=== PATIENT | female | born 1965 | race Caucasian/White ===

== ENCOUNTER → 2016-09-05 | Outpatient (CLI) | payer OTHER ==
[~2016-09-05] MED LIST: /CELE20CA OR; /ESCI20TA OR; /ESOM40CA OR; /QUET25TA OR; ACTOS/METFORMIN OR; ADVAIR INH; AMBI10TA OR; ARTHROTEC PO; BABY81CH OR; BACL10TA2 OR; INSULANT SC; INSULIN LANTUS; INSULIN REG SC; LODINE; MAGN500T2 OR; METH750T OR; MIRAPEX OR; NEUR300C OR; RAMI25CA OR; ROSU10TA; ROSU10TA OR; SOMA250T OR; SULI150T; TRAM50TA2 OR; [UNRECOGNIZED DRUG - REMARK]; januvia PO
--- NOTE | 2016-09-05 14:07 | REPMRS ---
Patient History The patient states she has not had a clinical breast exam in over a year. Patient is postmenopausal. Family history of unknown cancer in father at age 53, endometrial cancer in sister at age 44, and unknown cancer in mother at age 54. Digital Mammo Screening Bilat: September 05, 2016 - Exam #: [id number] Bilateral CC and MLO view(s) were taken. Technologist: Mitra Christianson, Technologist Prior study comparison: May 23, 2014, bilateral digital mammo screening bilat performed at [facility]. FINDINGS: There are scattered fibroglandular densities. There has been no change in the appearance of the mammogram from the prior studies. There is a mild amount of scattered fibroglandular density which is fairly symmetric. There is no interval development of dominant mass, architectural distortion, or clustered microcalcification suggestive of malignancy. ASSESSMENT: BI-RADS/ACR category 1 mammogram. Negative. Recommendation Routine screening mammogram in 1 year (for women over age 40). This mammogram was interpreted with the aid of an FDA-approved computer-aided dectection system. Electronically Signed By: Yuniel Kathleen MD 09/05/16 [id number]
--- NOTE | 2016-09-06 02:16 | REP ---
Clinical: Pain. Malignant neoplasm . Technique: AP, lateral, bilateral oblique views left wrist . Findings: The carpal bones, surrounding osseous structures, soft tissues, and joint spaces are normal for age . There is no evidence for acute fracture or dislocation. No subcutaneous emphysema or radiodense foreign body. Impression: Normal age appropriate wrist series. No acute fracture or dislocation. No obvious osseous or articular abnormality. Signed by Isaiah Soriano MD 09/06/2016 02:07 A
--- NOTE | 2016-09-06 02:42 | REP ---
Clinical: Pain. History of malignancy. Technique: AP, lateral, bilateral oblique and sunrise views of the right and left knee . Findings: The osseous structures and joint spaces are intact and age appropriate. There is no evidence for acute fracture or dislocation. No joint effusion is appreciated. Surrounding soft tissues are unremarkable. No subcutaneous emphysema or radiodense foreign body. Impression: Mild age-related changes. No acute fracture or dislocation. No obvious osseous abnormality. Signed by Isaiah Soriano MD 09/06/2016 02:33 A
== END ==
LOC: M RAD 13:45
PROVIDERS: ATTEND Nurse Practitioner Adult Health
DX: Z12.31 Encounter for screening mammogram for malignant neoplasm of breast (principal); Z78.0 Asymptomatic menopausal state; M25.532 Pain in left wrist; M67.442 Ganglion, left hand; M25.561 Pain in right knee; Z80.49 Family history of malignant neoplasm of other genital organs
CPT/HCPCS: 73110; 73564; G0202

== ENCOUNTER 2017-03-02 13:31 | Emergency (ER) | payer OTHER ==
[~2017-03-02] VITALS: Ht 162.6 cm; Wt 68.4 kg
[2017-03-02 13:32] VITALS: BP 114/71
[2017-03-02] MEDS ORDERED: METF10004 (13:42)
[2017-03-02] MEDS ORDERED: VITA1CAP40 (13:42)
[2017-03-02] MEDS ORDERED: SIMV20TA2 (13:42)
[2017-03-02] MEDS ORDERED: ALOG25TA (13:42)
[2017-03-02] MEDS ORDERED: MOBI4TAB PO (14:03)
[2017-03-02] MEDS ORDERED: NAPROXEN 250 MG TAB PO ONE (14:15)
[2017-06-05] MEDS ORDERED: SIMV40TA2 (16:05)
[2017-06-05] MEDS ORDERED: INVO100T PO (16:05)
== END 2017-03-02 14:21 | disposition home or self-care (01) ==
LOC: M ED 13:31
DX: G56.03 Carpal tunnel syndrome, bilateral upper limbs (principal); Z72.0 Tobacco use

== ENCOUNTER → 2017-10-16 | Outpatient (REF) | payer OTHER ==
[2017-10-16 18:25] LABS: BASO # 0.1 10^3/uL (0.0-0.2); BASO % 0.6 % (0.0-1.0); EOS # 0.2 10^3/uL (0.0-0.50); EOS % 2.6 % (0.0-3.0); HEMOGLOBIN 15.7 g/dl (12.0-16.0); IMMATURE GRANULOCYTE % 0.3 % (0-3.0); LYMPH # 3.4 10^3/uL (1.5-4.5); MEAN CORPUSCULAR HEMOGLOBIN 31.2 pg (27.0-33.0); MEAN CORPUSCULAR HGB CONC 34.9 g/dl (32.0-36.5); MEAN CORPUSCULAR VOLUME 89.5 fl (80.0-96.0); MONO # 0.5 10^3/uL (0.0-0.8); MONO % 5.8 % (0.0-5.0); NEUTROPHILS # 3.8 10^3/uL (1.8-7.7); NEUTROPHILS % 47.7 % (36.0-66.0); PLATELET COUNT, AUTOMATED 256 10^3/uL (150-450); RED BLOOD COUNT 5.03 10^6/uL (4.00-5.40); WHITE BLOOD COUNT 7.9 10^3/uL (4.0-10.0)
[2017-10-16 18:49] LABS: ALBUMIN 3.9 GM/DL (3.2-5.2); ALBUMIN/GLOBULIN RATIO 1.18 (1.00-1.93); ALKALINE PHOSPHATASE 92 U/L (45-117); ALT/SGPT 15 U/L (12-78); ANION GAP 8 MEQ/L (8-16); AST/SGOT 7 U/L (7-37); BILIRUBIN,TOTAL 0.4 MG/DL (0.2-1.0); BLOOD UREA NITROGEN 15 MG/DL (7-18); CALCIUM LEVEL 9.5 MG/DL (8.5-10.1); CARBON DIOXIDE LEVEL 30 MEQ/L (21-32); CHLORIDE LEVEL 96 MEQ/L (98-107); CHOLESTEROL LEVEL 257 MG/DL (<200); CHOLESTEROL RISK RATIO 6.268 (<5); CREATININE FOR GFR 0.76 MG/DL (0.55-1.30); FERRITIN 108 NG/ML (8-252); GLOMERULAR FILTRATION RATE > 60.0 (>51); GLUCOSE, FASTING 288 MG/DL (70-100); HDL CHOLESTEROL 41 MG/DL (>40); IRON (FE) 89 UG/DL (50-170); LDL CHOLESTEROL 156.8 MG/DL (<100); NON-HDL-C 216 MG/DL; POTASSIUM SERUM 4.4 MEQ/L (3.5-5.1); SODIUM LEVEL 134 MEQ/L (136-145); TOTAL PROTEIN 7.2 GM/DL (6.4-8.2); TRIGLYCERIDES LEVEL 296 MG/DL (<150)
[2017-10-16 19:26] LABS: MAU/CREAT RATIO 42.5 MCG/MG (0.0-30.0)
[2017-10-16 19:47] LABS: ESTIMATED AVERAGE GLUCOSE 283 MG/DL (60-110); HEMOGLOBIN A1c 11.5 %
[2017-10-16 21:18] LABS: CHLAMYDIA DNA AMPLIFICATION NEGATIVE (NEGATIVE); GC DNA AMPLIFICATION NEGATIVE (NEGATIVE)
[2017-10-18 12:38] LABS: HEPATITIS C VIRUS ABY INDEX 0.1 INDEX (<0.8); HIV 1&2 SCREEN CENTAUR NEGATIVE (NEGATIVE)
== END ==
LOC: M LAB REF 16:44
DX: E11.9 Type 2 diabetes mellitus without complications (principal); Z11.3 Encounter for screening for infections with a predominantly sexual mode of transmission; E78.00 Pure hypercholesterolemia, unspecified; G25.81 Restless legs syndrome; F31.30 Bipolar disorder, current episode depressed, mild or moderate severity, unspecified
CPT/HCPCS: 83540

== ENCOUNTER → 2017-11-24 | Outpatient (CLI) | payer OTHER | LOC: M RAD 15:20 | DX: Z12.31 Encounter for screening mammogram for malignant neoplasm of breast (principal) | CPT/HCPCS: 77067 ==

== ENCOUNTER → 2017-11-28 | Outpatient (REF) | payer OTHER ==
[2017-11-28 19:05] LABS: TOTAL 25(OH) VITAMIN D 20.6 NG/ML (30.0-100.0)
== END ==
LOC: M LAB REF 17:23
DX: R25.2 Cramp and spasm (principal)

== ENCOUNTER → 2018-01-29 | Outpatient (REF) | payer OTHER ==
[2018-01-29 13:17] LABS: ESTIMATED AVERAGE GLUCOSE 189 MG/DL (60-110); HEMOGLOBIN A1c 8.2 %
== END ==
LOC: M LAB REF 12:14
DX: E11.9 Type 2 diabetes mellitus without complications (principal)

== ENCOUNTER → 2018-01-30 | Outpatient (CLI) | payer OTHER | LOC: M RAD 16:12 | DX: M25.561 Pain in right knee (principal) | CPT/HCPCS: 73564 ==

== ENCOUNTER → 2018-08-02 | Outpatient (REF) | payer OTHER, MEDICAID ==
[~2018-08-02] MED LIST changes: +ALOG25TA; +INVO100T PO; +METF10004; +MOBI4TAB PO; +SIMV20TA2; +SIMV40TA2; +VITA50005
[2018-08-02 20:03] LABS: ALBUMIN 3.8 GM/DL (3.2-5.2); ALT/SGPT 20 U/L (12-78); BILIRUBIN,TOTAL 0.3 MG/DL (0.2-1.0); BLOOD UREA NITROGEN 19 MG/DL (7-18); CARBON DIOXIDE LEVEL 29 MEQ/L (21-32); CHLORIDE LEVEL 103 MEQ/L (98-107); CHOLESTEROL LEVEL 256 MG/DL (<200); CHOLESTEROL RISK RATIO 6.736 (<5); CREATININE FOR GFR 0.73 MG/DL (0.55-1.30); GLOMERULAR FILTRATION RATE > 60.0 (>51); GLUCOSE, FASTING 198 MG/DL (70-100); HDL CHOLESTEROL 38 MG/DL (>40); LDL CHOLESTEROL 171 MG/DL (<100); NON-HDL-C 218 MG/DL; POTASSIUM SERUM 4.5 MEQ/L (3.5-5.1); SODIUM LEVEL 137 MEQ/L (136-145); TOTAL 25(OH) VITAMIN D 10.7 NG/ML (30.0-100.0); TOTAL PROTEIN 7.1 GM/DL (6.4-8.2); TRIGLYCERIDES LEVEL 236 MG/DL (<150)
[2018-08-02 21:27] LABS: HEMOGLOBIN A1c 9.3 %
[2018-08-02 21:56] LABS: BASO # 0.1 10^3/uL (0.0-0.2); EOS # 0.4 10^3/uL (0.0-0.50); EOS % 5.3 % (0.0-3.0); HEMATOCRIT 40.6 % (36.0-47.0); HEMOGLOBIN 13.7 g/dl (12.0-15.5); LYMPH % 44.6 % (24.0-44.0); MEAN CORPUSCULAR HEMOGLOBIN 31.1 pg (27.0-33.0); MEAN CORPUSCULAR HGB CONC 33.7 g/dl (32.0-36.5); MEAN CORPUSCULAR VOLUME 92.3 fl (80.0-96.0); MONO # 0.4 10^3/uL (0.0-0.8); MONO % 5.2 % (0.0-5.0); NEUTROPHILS % 43.8 % (36.0-66.0); PLATELET COUNT, AUTOMATED 281 10^3/uL (150-450); WHITE BLOOD COUNT 6.8 10^3/uL (4.0-10.0)
== END ==
LOC: M LAB REF 18:39
PROVIDERS: ATTEND Nurse Practitioner Adult Health
DX: Z13.9 Encounter for screening, unspecified (principal)

== ENCOUNTER → 2018-08-02 | Outpatient (REF) | payer OTHER ==
[2018-08-02 19:36] LABS: CREATININE, URINE 55.5 MG/DL; MALB URINE SIEMENS 7.8 MG/L
== END ==
LOC: M LAB REF 17:20
PROVIDERS: ATTEND Nurse Practitioner Adult Health
DX: Z13.9 Encounter for screening, unspecified (principal)

== ENCOUNTER → 2018-11-01 | Outpatient (REF) | payer OTHER, MEDICAID ==
[~2018-11-01] MED LIST changes: -/CELE20CA OR; -/ESCI20TA OR; -/ESOM40CA OR; -/QUET25TA OR; +CELE1CAP4 OR; +CRES10TA32; +CRES10TA32 OR; +LEXA1TAB2 OR; +NEXI1CAP3 OR; -ROSU10TA; -ROSU10TA OR; +SERO1TAB3 OR
[2018-11-01 19:34] LABS: HEMOGLOBIN A1c 8.3 %
== END ==
LOC: M LAB REF 17:25
PROVIDERS: ATTEND Nurse Practitioner Adult Health
DX: E11.9 Type 2 diabetes mellitus without complications (principal)

== ENCOUNTER → 2019-04-30 | Outpatient (REF) | payer OTHER, MEDICAID ==
[2019-04-30 19:25] LABS: BASO # 0.1 10^3/uL (0.0-0.2); BASO % 0.8 % (0.0-1.0); EOS # 0.2 10^3/uL (0.0-0.5); EOS % 3.7 % (0.0-3.0); HEMATOCRIT 45.1 % (36.0-47.0); HEMOGLOBIN 15.2 g/dl (12.0-15.5); LYMPH # 2.6 10^3/uL (1.5-5.0); LYMPH % 42.1 % (24.0-44.0); MEAN CORPUSCULAR HEMOGLOBIN 31.1 pg (27.0-33.0); MEAN CORPUSCULAR HGB CONC 33.7 g/dl (32.0-36.5); MEAN CORPUSCULAR VOLUME 92.2 fl (80.0-96.0); MONO # 0.3 10^3/uL (0.0-0.8); MONO % 5.5 % (0.0-5.0); NEUTROPHILS % 47.7 % (36.0-66.0); PLATELET COUNT, AUTOMATED 263 10^3/uL (150-450); RED BLOOD COUNT 4.89 10^6/uL (4.00-5.40); WHITE BLOOD COUNT 6.2 10^3/uL (4.0-10.0)
[2019-04-30 19:39] LABS: ALBUMIN 3.9 GM/DL (3.2-5.2); ALT/SGPT 30 U/L (12-78); BILIRUBIN,TOTAL 0.3 MG/DL (0.2-1.0); BLOOD UREA NITROGEN 15 MG/DL (7-18); CALCIUM LEVEL 9.5 MG/DL (8.5-10.1); CARBON DIOXIDE LEVEL 30 MEQ/L (21-32); CHLORIDE LEVEL 100 MEQ/L (98-107); CREATININE FOR GFR 0.94 MG/DL (0.55-1.30); GLOMERULAR FILTRATION RATE > 60.0 (>51); GLUCOSE, FASTING 241 MG/DL (70-100); IRON (FE) 113 UG/DL (50-170); POTASSIUM SERUM 4.9 MEQ/L (3.5-5.1); SODIUM LEVEL 135 MEQ/L (136-145); TOTAL 25(OH) VITAMIN D 17.2 NG/ML (30.0-100.0); TOTAL PROTEIN 7.8 GM/DL (6.4-8.2); VITAMIN B12 LEVEL 675 PG/ML (247-911)
[2019-04-30 19:49] LABS: HEMOGLOBIN A1c 10.1 %
== END ==
LOC: M LAB REF 18:49
PROVIDERS: ATTEND Nurse Practitioner Adult Health
DX: Z13.9 Encounter for screening, unspecified (principal); R53.81 Other malaise

== ENCOUNTER → 2019-08-06 | Outpatient (REF) | payer OTHER, MEDICAID ==
[~2019-08-06] MED LIST changes: -SIMV20TA2; +SIMV20TA22; -SIMV40TA2; +SIMV40TA20
[2019-08-06 18:37] LABS: BASO # 0.1 10^3/uL (0.0-0.2); BASO % 0.6 % (0.0-1.0); EOS # 0.3 10^3/uL (0.0-0.5); EOS % 3.2 % (0.0-3.0); HEMATOCRIT 43.5 % (36.0-47.0); LYMPH # 2.7 10^3/uL (1.5-5.0); LYMPH % 33.8 % (24.0-44.0); MEAN CORPUSCULAR HEMOGLOBIN 30.5 pg (27.0-33.0); MEAN CORPUSCULAR HGB CONC 32.2 g/dl (32.0-36.5); MEAN CORPUSCULAR VOLUME 94.8 fl (80.0-96.0); MONO # 0.4 10^3/uL (0.0-0.8); MONO % 5.4 % (0.0-5.0); NEUTROPHILS # 4.6 10^3/uL (1.5-8.5); NEUTROPHILS % 56.6 % (36.0-66.0); PLATELET COUNT, AUTOMATED 235 10^3/uL (150-450); RED BLOOD COUNT 4.59 10^6/uL (4.00-5.40); WHITE BLOOD COUNT 8.1 10^3/uL (4.0-10.0)
[2019-08-06 18:45] LABS: HEMOGLOBIN A1c 8.2 %
[2019-08-06 18:52] LABS: ALBUMIN 3.8 GM/DL (3.2-5.2); BILIRUBIN,TOTAL 0.2 MG/DL (0.2-1.0); CALCIUM LEVEL 8.9 MG/DL (8.5-10.1); CREATININE FOR GFR 1.28 MG/DL (0.55-1.30); GLOMERULAR FILTRATION RATE 45.9 (>51); POTASSIUM SERUM 4.2 MEQ/L (3.5-5.1); TOTAL PROTEIN 7.3 GM/DL (6.4-8.2)
== END ==
LOC: M LAB REF 18:02
PROVIDERS: ATTEND Nurse Practitioner Adult Health
DX: E11.9 Type 2 diabetes mellitus without complications (principal)

== ENCOUNTER → 2019-10-16 | Outpatient (REF) | payer OTHER, MEDICAID ==
[2019-10-16 19:16] LABS: HEMOGLOBIN A1c 8.9 %
== END ==
LOC: M LAB REF 18:28
PROVIDERS: ATTEND Nurse Practitioner Adult Health
DX: E11.9 Type 2 diabetes mellitus without complications (principal)

== ENCOUNTER → 2020-04-01 | Outpatient (REF) | payer OTHER, MEDICAID ==
[2020-04-01 19:23] LABS: ALBUMIN 3.9 GM/DL (3.2-5.2); ALT/SGPT 25 U/L (12-78); BILIRUBIN,TOTAL 0.2 MG/DL (0.2-1.0); BLOOD UREA NITROGEN 20 MG/DL (7-18); CALCIUM LEVEL 9.4 MG/DL (8.5-10.1); CARBON DIOXIDE LEVEL 29 MEQ/L (21-32); CHLORIDE LEVEL 98 MEQ/L (98-107); GLOMERULAR FILTRATION RATE > 60.0 (>51); GLUCOSE, FASTING 318 MG/DL (70-100); POTASSIUM SERUM 4.5 MEQ/L (3.5-5.1); SODIUM LEVEL 133 MEQ/L (136-145); TOTAL PROTEIN 7.3 GM/DL (6.4-8.2)
[2020-04-01 19:27] LABS: HEMOGLOBIN A1c 10.5 %
== END ==
LOC: M LAB REF 18:22
PROVIDERS: ATTEND Nurse Practitioner Adult Health
DX: E11.9 Type 2 diabetes mellitus without complications (principal)

== ENCOUNTER → 2020-10-06 | Outpatient (REF) | payer OTHER, MEDICAID ==
[2020-10-06 16:53] LABS: BASO # 0.1 10^3/uL (0.0-0.2); BASO % 0.7 % (0.0-1.0); EOS # 0.4 10^3/uL (0.0-0.5); HEMATOCRIT 41.9 % (36.0-47.0); HEMOGLOBIN 14.1 g/dl (12.0-15.5); LYMPH # 3.8 10^3/uL (1.5-5.0); LYMPH % 41.7 % (24.0-44.0); MEAN CORPUSCULAR HEMOGLOBIN 31.3 pg (27.0-33.0); MEAN CORPUSCULAR HGB CONC 33.7 g/dl (32.0-36.5); MEAN CORPUSCULAR VOLUME 92.9 fl (80.0-96.0); MONO # 0.5 10^3/uL (0.0-0.8); MONO % 5.6 % (2.0-8.0); NEUTROPHILS # 4.2 10^3/uL (1.5-8.5); NEUTROPHILS % 46.9 % (36.0-66.0); PLATELET COUNT, AUTOMATED 251 10^3/uL (150-450); RED BLOOD COUNT 4.51 10^6/uL (4.00-5.40)
[2020-10-06 17:19] LABS: ALBUMIN 3.6 GM/DL (3.2-5.2); ALT/SGPT 47 U/L (12-78); BILIRUBIN,TOTAL 0.4 MG/DL (0.2-1.0); BLOOD UREA NITROGEN 16 MG/DL (7-18); CALCIUM LEVEL 9.8 MG/DL (8.5-10.1); CARBON DIOXIDE LEVEL 31 MEQ/L (21-32); CHLORIDE LEVEL 99 MEQ/L (98-107); CHOLESTEROL LEVEL 230 MG/DL (<200); CHOLESTEROL RISK RATIO 6.571 (<5); GLOMERULAR FILTRATION RATE > 60.0 (>51); GLUCOSE, FASTING 307 MG/DL (70-100); HDL CHOLESTEROL 35 MG/DL (>40); LDL CHOLESTEROL 142 MG/DL (<100); NON-HDL-C 195 MG/DL; POTASSIUM SERUM 4.8 MEQ/L (3.5-5.1); SODIUM LEVEL 134 MEQ/L (136-145); TOTAL PROTEIN 7.4 GM/DL (6.4-8.2); TRIGLYCERIDES LEVEL 264 MG/DL (<150)
[2020-10-07 06:37] LABS: HEMOGLOBIN A1c 13.3 %
== END ==
LOC: M LAB REF 16:19
PROVIDERS: ATTEND Family Medicine Addiction Medicine
DX: E11.621 Type 2 diabetes mellitus with foot ulcer (principal)

== ENCOUNTER 2020-12-08 16:36 | Emergency (ER) | payer OTHER, MEDICAID ==
[~2020-12-08] VITALS: Ht 162.6 cm; Wt 68.6 kg
[2020-12-08 16:36] VITALS: BP 138/72
[~2020-12-08 16:36] MED LIST changes: -ALBU8.5H; -BASA100I; -TRUL10IN; -VENL150T24
[2020-12-08] MEDS ORDERED: VENL150T24 (16:43)
[2020-12-08] MEDS ORDERED: BASA100I (16:43)
[2020-12-08] MEDS ORDERED: TRUL10IN (16:43)
[2020-12-08] MEDS ORDERED: ALBU8.5H (16:43)
== END 2020-12-08 18:25 | disposition left against medical advice (07) ==
LOC: M ED 16:36
DX: Z53.21 Procedure and treatment not carried out due to patient leaving prior to being seen by health care provider (principal)

== ENCOUNTER → 2020-12-08 | Outpatient (REF) | payer OTHER ==
[~2020-12-08] MED LIST changes: +ALBU8.5H; +BASA100I; +TRUL10IN; +VENL150T24
== END ==
LOC: M WUC 19:32
PROVIDERS: ATTEND Physician Assistant
DX: R31.9 Hematuria, unspecified (principal)

== ENCOUNTER → 2020-12-09 | Outpatient (CLI) | payer OTHER ==
[~2020-12-09] MED LIST changes: +ALBU8.5H; +BASA100I; +TRUL10IN; +VENL150T24
--- NOTE | 2020-12-09 08:48 | REP ---
INDICATION: HEMATURIA, LOW BACK PAIN. COMPARISON: Chest 07/14/2014. TECHNIQUE: Supine and erect views of the abdomen, frontal view chest. FINDINGS: There is no evidence of free intraperitoneal air and no radiographic evidence of bowel obstruction. Moderate fecal material seen in the right colon. Mild air and fecal material is seen in the rectosigmoid colon. Multiple phleboliths are seen in the lower pelvis. There are mild degenerative changes of the spine. There is a transitional lumbar vertebral body with partial sacralization of L5 on the left. No infiltrate is seen in either lung. The heart and mediastinum are unremarkable and unchanged. IMPRESSION: No acute findings. <Electronically signed by Anson Romero > 12/09/20 [id number]
[2020-12-09 10:16] LABS: BASO # 0.1 10^3/uL (0.0-0.2); BASO % 0.3 % (0.0-1.0); EOS # 0.5 10^3/uL (0.0-0.5); EOS % 2.8 % (0.0-3.0); HEMATOCRIT 31.8 % (36.0-47.0); HEMOGLOBIN 10.1 g/dl (12.0-15.5); LYMPH % 11.3 % (24.0-44.0); MEAN CORPUSCULAR HEMOGLOBIN 28.5 pg (27.0-33.0); MEAN CORPUSCULAR HGB CONC 31.8 g/dl (32.0-36.5); MEAN CORPUSCULAR VOLUME 89.8 fl (80.0-96.0); MONO # 1.1 10^3/uL (0.0-0.8); MONO % 6.1 % (2.0-8.0); NEUTROPHILS # 13.5 10^3/uL (1.5-8.5); NEUTROPHILS % 78.3 % (36.0-66.0); PLATELET COUNT, AUTOMATED 544 10^3/uL (150-450); RED BLOOD COUNT 3.54 10^6/uL (4.00-5.40); WHITE BLOOD COUNT 17.3 10^3/uL (4.0-10.0)
[2020-12-09 10:39] LABS: ALBUMIN 2.1 GM/DL (3.2-5.2); ALT/SGPT 31 U/L (12-78); AMYLASE 9 U/L (25-115); BILIRUBIN,TOTAL 0.9 MG/DL (0.2-1.0); BLOOD UREA NITROGEN 17 MG/DL (7-18); CALCIUM LEVEL 9.3 MG/DL (8.5-10.1); CARBON DIOXIDE LEVEL 27 MEQ/L (21-32); CHLORIDE LEVEL 91 MEQ/L (98-107); CREATININE FOR GFR 0.94 MG/DL (0.55-1.30); GLOMERULAR FILTRATION RATE > 60.0 (>51); GLUCOSE, FASTING 247 MG/DL (70-100); LIPASE 36 U/L (73-393); SODIUM LEVEL 129 MEQ/L (136-145); TOTAL PROTEIN 7.2 GM/DL (6.4-8.2)
== END ==
LOC: M WUC 08:21
PROVIDERS: ATTEND Physician Assistant
DX: R31.9 Hematuria, unspecified (principal); M54.5 Low back pain; E13.65 Other specified diabetes mellitus with hyperglycemia

== ENCOUNTER 2020-12-18 11:19 | Emergency (ER) | payer OTHER ==
[~2020-12-18] VITALS: Ht 162.6 cm; Wt 65.4 kg
[2020-12-18] MEDS ORDERED: CEPH500C (11:33)
[2020-12-18] MEDS ORDERED: NS 1,000 ML IV ONE ×2 (12:40→16:35)
[2020-12-18 13:22] LABS: BASO # 0.1 10^3/uL (0.0-0.2); BASO % 0.4 % (0.0-1.0); EOS # 0.2 10^3/uL (0.0-0.5); EOS % 1.2 % (0.0-3.0); HEMATOCRIT 29.9 % (36.0-47.0); HEMOGLOBIN 9.3 g/dl (12.0-15.5); LYMPH # 1.9 10^3/uL (1.5-5.0); LYMPH % 13.3 % (24.0-44.0); MEAN CORPUSCULAR HEMOGLOBIN 28.2 pg (27.0-33.0); MEAN CORPUSCULAR HGB CONC 31.1 g/dl (32.0-36.5); MEAN CORPUSCULAR VOLUME 90.6 fl (80.0-96.0); MONO # 0.7 10^3/uL (0.0-0.8); MONO % 5.1 % (2.0-8.0); NEUTROPHILS # 10.7 10^3/uL (1.5-8.5); NEUTROPHILS % 75.6 % (36.0-66.0); PLATELET COUNT, AUTOMATED 507 10^3/uL (150-450); WHITE BLOOD COUNT 14.2 10^3/uL (4.0-10.0)
[2020-12-18 13:45] LABS: ERYTHROCYTE SEDIMENTATION RATE 106 mm/hr (0-30)
[2020-12-18 13:46] LABS: ALBUMIN 1.7 GM/DL (3.2-5.2); BILIRUBIN,DIRECT 0.2 MG/DL (0.0-0.2); BILIRUBIN,TOTAL 0.4 MG/DL (0.2-1.0); C REACTIVE PROTEIN QUANTITATIV 14.5 MG/DL (0.00-0.30); TOTAL PROTEIN 6.5 GM/DL (6.4-8.2)
--- NOTE | 2020-12-18 14:33 | REP ---
INDICATION: abscess/ cellulitis. COMPARISON: None TECHNIQUE: Scanning over the area of interest left lower back over visible swelling FINDINGS: The technologist noted an 11 x 13 cm sized area which appeared hyperechoic and complex and debris was seen flowing "in and out" of this complex appearing structure. IMPRESSION: Possible abscess. Contrast enhanced CT is recommended. <Electronically signed by Brandon Lopez > 12/18/20 [id number]
[2020-12-18] MEDS ORDERED: cefTRIAXone SOD 1 GM in D5W MINI-BAG PLUS 50 ML IV ONE (14:50)
[2020-12-18] MEDS ORDERED: ISOVUE-370 76% 100ML VIAL As Ordered ONE (15:02)
--- NOTE | 2020-12-18 15:49 | REP ---
INDICATION: abscess on flank of left side. COMPARISON: 07/21/2009 TECHNIQUE: Contrast-enhanced helical technique after the intravenous administration of 100 cc Isovue 370. Due to the patient's condition the examination was obtained with the patient in the prone position. FINDINGS: The lung bases are clear. In the left flank/lumbar region there is a large mixed density collection which measures approximately 10 x 10 by 8 cm and has air density within and surrounding it. This is seen in conjunction with abnormal invasion through all layers of the left posterior abdominal wall and retroperitoneum including perforation through the thoracolumbar fascia invading the left Yasmin renal space. There is abnormal anterior displacement of the left kidney. The abnormal mixed density within the retroperitoneum itself measures approximately 8.9 by 5 by 10 cm. The liver, gallbladder, spleen, pancreas, adrenal glands, and left kidney are otherwise within normal limits. There is a large right renal cyst which was seen on prior CT but is increased in size. They remain simple in appearance. The abdominal aorta is within normal limits. There is mild para-aortic adenopathy on the left. There is abnormal left retroperitoneal air density, however, there is no evidence of free intra peritoneal air. There is no evidence of free intraperitoneal fluid. A portion of the descending colon abuts the abnormal retroperitoneal collection but is otherwise within normal limits. There is no evidence of intestinal obstruction. Bone window technique throughout the exam shows the osseous structures to be intact. There is left inguinal adenopathy which is likely reactive. IMPRESSION: 1. There is a large left flank/retroperitoneal abscess as described above. 2. Large right renal cyst increased in size from the prior exam but remaining simple in appearance. 3. Left inguinal adenopathy likely reactive due to the aforementioned abscess. 4. Other findings as described above. 5. These findings were discussed with Dr. Romero in the emergency department at the time of this dictation. <Electronically signed by Brandon Lopez > 12/18/20 [id number]
[2020-12-18] MEDS ORDERED: VANCOMYCIN HCL 1,250 MG in IV FLUID PLACE HOLDER 1 EA IV ONE (16:35)
[2020-12-18] MEDS ORDERED: VANCOMYCIN HCL 750 MG, VIAL MATE ADAPTER 1 EACH in NS 250 ML IV ONE (17:00)
[2020-12-18] MEDS ORDERED: VANCOMYCIN HCL 500 MG in D5W MINI-BAG PLUS 100 ML IV ONE (17:00)
[2020-12-18 18:23] LABS: RSV AMPLIFICATION NEGATIVE (NEGATIVE)
[2020-12-18] MEDS ORDERED: MORPHINE 4 MG/ML 1ML VIAL/SYRINGE (J2270) IV ONE (20:20)
[2020-12-18 20:28] VITALS: BP 157/70
== END 2020-12-18 20:33 | disposition short-term general hospital (02) ==
LOC: M ED 11:19
DX: K68.19 Other retroperitoneal abscess (principal); E11.65 Type 2 diabetes mellitus with hyperglycemia; E87.1 Hypo-osmolality and hyponatremia; I10 Essential (primary) hypertension; J44.9 Chronic obstructive pulmonary disease, unspecified; E78.5 Hyperlipidemia, unspecified; Z88.8 Allergy status to other drugs, medicaments and biological substances; Z79.899 Other long term (current) drug therapy; Z79.4 Long term (current) use of insulin; Z87.891 Personal history of nicotine dependence
CPT/HCPCS: 74177; 76604; 80047; 80076; 83605; 85025; 85652; 86140; 87040; 87631; 96361; 96365; 96367; 96375; 99284; J0696; J2270; J3370; Q9967

== ENCOUNTER → 2021-03-16 | Outpatient (REF) | payer OTHER ==
[~2021-03-16] MED LIST changes: +CEPH500C
== END ==
LOC: M LAB REF 17:32
PROVIDERS: ATTEND Podiatrist Foot & Ankle Surgery
DX: L03.032 Cellulitis of left toe (principal)

== ENCOUNTER → 2021-06-16 | Outpatient (CLI) | payer OTHER ==
--- NOTE | 2021-06-16 10:53 | REP ---
INDICATION: CHRONIC KIDNEY DISEASE COMPARISON: CT dated 12/18/2020 TECHNIQUE: Real time cervantes scale ultrasound examination using curved array transducer. FINDINGS: Right kidney measures 12.2 x 5.5 x 6.1 cm and includes a 6.3 x 4.1 x 4.6 cm midpole septated otherwise benign appearing cyst. No hydronephrosis, nephrolithiasis or obvious mass lesion. Left kidney measures 10.3 x 4.2 x 5.2 cm and includes a small 6 mm lower pole simple cyst. No hydronephrosis, nephrolithiasis or obvious mass lesion. Bladder is partially collapsed. IMPRESSION: 1. Large septated simple appearing right renal cyst and 6 mm simple left renal cyst. <Electronically signed by Isaiah Soriano > 06/16/21 [id number]
== END ==
LOC: M RAD 09:24
PROVIDERS: ATTEND Internal Medicine Nephrology
DX: N18.31 Chronic kidney disease, stage 3a (principal); N28.1 Cyst of kidney, acquired

== ENCOUNTER → 2021-06-30 | Outpatient (CLI) | payer OTHER | LOC: M RAD 14:32 | PROVIDERS: ATTEND Family Medicine Addiction Medicine | DX: M51.37 Other intervertebral disc degeneration, lumbosacral region (principal); M48.07 Spinal stenosis, lumbosacral region ==

== ENCOUNTER → 2021-09-28 | Outpatient (REF) | LOC: M PLAIMG 14:17 | PROVIDERS: ATTEND Internal Medicine | DX: M51.37 Other intervertebral disc degeneration, lumbosacral region (principal); M48.07 Spinal stenosis, lumbosacral region; M43.16 Spondylolisthesis, lumbar region ==

== ENCOUNTER → 2021-12-09 | Outpatient (CLI) | payer OTHER | LOC: M RAD 14:49 | PROVIDERS: ATTEND Physician Assistant | DX: M51.36 Other intervertebral disc degeneration, lumbar region (principal); M48.061 Spinal stenosis, lumbar region without neurogenic claudication; N28.1 Cyst of kidney, acquired ==

== ENCOUNTER → 2022-05-25 | Outpatient (CLI) | payer MEDICAID, OTHER ==
[~2022-05-25] MED LIST changes: -BASA100I; +BASA100I SQ; +TRUL0.5I SQ; -VENL150T24; +VENL150T24 PO
== END ==
LOC: M LABSMTC 09:23
PROVIDERS: ATTEND Anesthesiology
DX: Z01.812 Encounter for preprocedural laboratory examination (principal); Z11.52 Encounter for screening for COVID-19

== ENCOUNTER 2022-05-30 08:42 | Day surgery (SDC) | payer MEDICAID, OTHER, SELFPAY ==
[~2022-05-30] VITALS: Ht 162.6 cm; Wt 68.9 kg
[~2022-05-30 08:42] MED LIST changes: +LIDOCAINE 2% 100MG/5ML SDV (FOR ANES.) As Ordered ONE; +NS 1,000 ML IV ONE; +fentaNYL 100 MCG/2 ML INJECTION As Ordered ONE; +propofoL 200 MG/20 ML VIAL As Ordered ONE; +propofoL 500 MG/50 ML VIAL As Ordered ONE
[2022-05-30 11:37] VITALS: BP 135/74
[2022-07-08] MEDS ORDERED: VENL50TA2 PO (08:24)
[2022-07-08] MEDS ORDERED: PANT20TA6 PO (08:24)
== END 2022-05-30 11:38 | disposition home or self-care (01) ==
LOC: M OPP 08:42
PROVIDERS: ATTEND Internal Medicine Gastroenterology
DX: K29.70 Gastritis, unspecified, without bleeding (principal); K29.80 Duodenitis without bleeding; K44.9 Diaphragmatic hernia without obstruction or gangrene; K31.84 Gastroparesis; Z80.0 Family history of malignant neoplasm of digestive organs; Z79.4 Long term (current) use of insulin; Z79.51 Long term (current) use of inhaled steroids; Z79.899 Other long term (current) drug therapy; Z88.8 Allergy status to other drugs, medicaments and biological substances; F32.9 Major depressive disorder, single episode, unspecified; F41.9 Anxiety disorder, unspecified; I10 Essential (primary) hypertension; E11.9 Type 2 diabetes mellitus without complications; J44.9 Chronic obstructive pulmonary disease, unspecified; Z87.448 Personal history of other diseases of urinary system; Z80.49 Family history of malignant neoplasm of other genital organs; Z80.52 Family history of malignant neoplasm of bladder

== ENCOUNTER → 2022-06-24 | Outpatient (CLI) | payer MEDICAID ==
[~2022-06-24] MED LIST changes: -LIDOCAINE 2% 100MG/5ML SDV (FOR ANES.) As Ordered ONE; -NS 1,000 ML IV ONE; -fentaNYL 100 MCG/2 ML INJECTION As Ordered ONE; -propofoL 200 MG/20 ML VIAL As Ordered ONE; -propofoL 500 MG/50 ML VIAL As Ordered ONE
== END ==
LOC: M LAB 10:10
PROVIDERS: ATTEND Internal Medicine Gastroenterology
DX: R63.4 Abnormal weight loss (principal)

== ENCOUNTER → 2022-07-11 | Outpatient (CLI) | payer OTHER ==
[~2022-07-11] MED LIST changes: +**SFHN** LIDOCAINE 1% MDV 20ML VIAL ONE; +**SFHN** methylPREDNISolone 40MG 1ML VIAL ONE; +ISOVUE-300 61% 50ML VIAL ONE; +PANT20TA6 PO; +VENL50TA2 PO
== END ==
LOC: M PLAIMG 13:11
PROVIDERS: ATTEND Physician Assistant
DX: M70.61 Trochanteric bursitis, right hip (principal)
CPT/HCPCS: 20610; 76000; J2920

== ENCOUNTER → 2022-07-19 | Outpatient (CLI) | payer MEDICAID, OTHER ==
[~2022-07-19] MED LIST changes: -**SFHN** LIDOCAINE 1% MDV 20ML VIAL ONE; -**SFHN** methylPREDNISolone 40MG 1ML VIAL ONE; -ISOVUE-300 61% 50ML VIAL ONE
== END ==
LOC: M LABSMTC 09:04
PROVIDERS: ATTEND Anesthesiology
DX: Z01.818 Encounter for other preprocedural examination (principal); Z11.52 Encounter for screening for COVID-19

== ENCOUNTER 2022-07-22 06:25 | Day surgery (SDC) | payer OTHER ==
[~2022-07-22] VITALS: Ht 162.6 cm; Wt 72.6 kg
[~2022-07-22 06:25] MED LIST changes: +NS 1,000 ML IV ONE
[2022-07-22] MEDS ORDERED: propofoL 200 MG/20 ML VIAL As Ordered ONE (07:33)
[2022-07-22 08:20] VITALS: BP 141/77
== END 2022-07-22 08:34 | disposition home or self-care (01) ==
LOC: M OPP 06:25
PROVIDERS: ATTEND Internal Medicine Gastroenterology
DX: Z80.0 Family history of malignant neoplasm of digestive organs (principal); K63.5 Polyp of colon; Z79.4 Long term (current) use of insulin; Z79.899 Other long term (current) drug therapy; Z88.8 Allergy status to other drugs, medicaments and biological substances; K21.9 Gastro-esophageal reflux disease without esophagitis; E78.00 Pure hypercholesterolemia, unspecified; E10.9 Type 1 diabetes mellitus without complications; M13.89 Other specified arthritis, multiple sites; F32.9 Major depressive disorder, single episode, unspecified; J44.9 Chronic obstructive pulmonary disease, unspecified; N28.1 Cyst of kidney, acquired; F17.200 Nicotine dependence, unspecified, uncomplicated

== ENCOUNTER → 2022-08-19 | Outpatient (REF) | payer OTHER ==
[~2022-08-19] MED LIST changes: -NS 1,000 ML IV ONE
[2022-08-19 18:59] LABS: CREATININE, URINE 78.2 MG/DL; MAU/CREAT RATIO 104.8 MCG/MG (0.0-30.0)
== END ==
LOC: M LAB REF 17:06
PROVIDERS: ATTEND Internal Medicine Nephrology
DX: E11.22 Type 2 diabetes mellitus with diabetic chronic kidney disease (principal)

== ENCOUNTER → 2022-09-02 | Outpatient (CLI) | payer OTHER ==
[~2022-09-02] MED LIST changes: +GAVICHW PO; +VENL37.598 PO
== END ==
LOC: M PLAIMG 10:02
PROVIDERS: ATTEND Physician Assistant
DX: M51.36 Other intervertebral disc degeneration, lumbar region (principal); M47.816 Spondylosis without myelopathy or radiculopathy, lumbar region

== ENCOUNTER → 2022-09-05 | Outpatient (CLI) | payer OTHER | LOC: M LABSMTC 09:01 | PROVIDERS: ATTEND Internal Medicine Gastroenterology | DX: Z01.812 Encounter for preprocedural laboratory examination (principal); Z11.52 Encounter for screening for COVID-19 ==

== ENCOUNTER 2022-09-08 06:45 | Day surgery (SDC) | payer OTHER ==
[~2022-09-08] VITALS: Ht 162.6 cm; Wt 74.3 kg
[~2022-09-08 06:45] MED LIST changes: -GAVICHW PO; +NS 1,000 ML IV ONE
[2022-09-08] MEDS ORDERED: GAVICHW PO (07:10)
[2022-09-08] MEDS ORDERED: PANT20TA6 PO (07:10)
[2022-09-08] MEDS ORDERED: LIDOCAINE 2% 100MG/5ML SDV (FOR ANES.) As Ordered ONE (07:27)
[2022-09-08] MEDS ORDERED: propofoL 200 MG/20 ML VIAL As Ordered ONE (07:27)
[2022-09-08 08:03] VITALS: BP 105/59
== END 2022-09-08 08:12 | disposition home or self-care (01) ==
LOC: M OPP 06:45
PROVIDERS: ATTEND Internal Medicine Gastroenterology
DX: Z12.11 Encounter for screening for malignant neoplasm of colon (principal); Z80.0 Family history of malignant neoplasm of digestive organs; D12.5 Benign neoplasm of sigmoid colon; K57.30 Diverticulosis of large intestine without perforation or abscess without bleeding; K64.8 Other hemorrhoids; E11.43 Type 2 diabetes mellitus with diabetic autonomic (poly)neuropathy; E78.00 Pure hypercholesterolemia, unspecified; J45.909 Unspecified asthma, uncomplicated; N28.1 Cyst of kidney, acquired; F41.9 Anxiety disorder, unspecified; F17.200 Nicotine dependence, unspecified, uncomplicated; K31.84 Gastroparesis; Z79.4 Long term (current) use of insulin; Z79.899 Other long term (current) drug therapy; Z88.8 Allergy status to other drugs, medicaments and biological substances

== ENCOUNTER → 2022-10-11 | Outpatient (CLI) | payer OTHER ==
[~2022-10-11] MED LIST changes: +GAVICHW PO; -NS 1,000 ML IV ONE
== END ==
LOC: M PLAIMG 10:59
PROVIDERS: ATTEND Physician Assistant
DX: M16.11 Unilateral primary osteoarthritis, right hip (principal); M70.60 Trochanteric bursitis, unspecified hip; M67.951 Unspecified disorder of synovium and tendon, right thigh

== ENCOUNTER → 2022-12-14 | Outpatient (CLI) | payer OTHER ==
[~2022-12-14] MED LIST changes: +ISOVUE-300 61% 100ML VIAL ONE; +LIDOCAINE 1% MDV 20ML VIAL ONE; +methylPREDNISolone SUSP 40MG/ML 1ML VIAL (DEPO MEDROL) ONE
== END ==
LOC: M PLAIMG 12:15
PROVIDERS: ATTEND Physician Assistant
DX: M16.11 Unilateral primary osteoarthritis, right hip (principal)

== ENCOUNTER → 2022-12-27 | Outpatient (CLI) | payer OTHER ==
[~2022-12-27] MED LIST changes: -ISOVUE-300 61% 100ML VIAL ONE; -LIDOCAINE 1% MDV 20ML VIAL ONE; -methylPREDNISolone SUSP 40MG/ML 1ML VIAL (DEPO MEDROL) ONE
[2022-12-27 18:33] LABS: CHOLESTEROL RISK RATIO 6.2 (<5); HDL CHOLESTEROL 36.4 MG/DL (>40); NON-HDL-C 189.6 MG/DL
== END ==
LOC: M LAB 17:37
PROVIDERS: ATTEND Nurse Practitioner
DX: E11.9 Type 2 diabetes mellitus without complications (principal); Z79.4 Long term (current) use of insulin

== ENCOUNTER → 2023-01-12 | Outpatient (CLI) | payer OTHER | LOC: M WHC 01-06 09:01 | PROVIDERS: ATTEND Nurse Practitioner | DX: Z12.31 Encounter for screening mammogram for malignant neoplasm of breast (principal) ==

== ENCOUNTER → 2023-05-10 | Outpatient (CLI) | payer OTHER ==
[2023-05-10 14:22] LABS: HEMATOCRIT 38.9 % (36.0-47.0); HEMOGLOBIN 12.9 g/dl (12.0-15.5); MEAN CORPUSCULAR HEMOGLOBIN 31.6 pg (27.0-33.0); MEAN CORPUSCULAR HGB CONC 33.2 g/dl (32.0-36.5); MEAN CORPUSCULAR VOLUME 95.3 fl (80.0-96.0); PLATELET COUNT, AUTOMATED 249 10^3/uL (150-450); RED BLOOD COUNT 4.08 10^6/uL (4.00-5.40); WHITE BLOOD COUNT 6.5 10^3/uL (4.0-10.0)
[2023-05-10 14:31] LABS: HEMOGLOBIN A1c 6.1 % (4.0-6.0)
[2023-05-10 14:55] LABS: C REACTIVE PROTEIN QUANTITATIV < 0.40 MG/DL (<1.0); CREATININE, URINE 209.9 MG/DL; MAU/CREAT RATIO 21.4 MCG/MG (0.0-30.0)
[2023-05-10 15:00] LABS: ALBUMIN 3.8 G/DL (3.2-5.2); ALKALINE PHOSPHATASE 64 U/L (46-116); ALT/SGPT 16 U/L (7.0-40); AST/SGOT 11 U/L (<34); BILIRUBIN,TOTAL 0.3 MG/DL (0.3-1.2); BLOOD UREA NITROGEN 19 MG/DL (9-23); CALCIUM LEVEL 9.6 MG/DL (8.5-10.1); CARBON DIOXIDE LEVEL 27 MMOL/L (20-31); CHLORIDE LEVEL 106 MMOL/L (98-107); CHOLESTEROL LEVEL 199 MG/DL (<200); CHOLESTEROL RISK RATIO 5.94 (<5); CREATININE FOR GFR 1.14 MG/DL (0.55-1.30); FREE T4 1.45 NG/DL (0.89-1.76); GLOMERULAR FILTRATION RATE 51.9 (>51); GLUCOSE, FASTING 125 MG/DL (60-100); HDL CHOLESTEROL 33.5 MG/DL (>40); LDL CHOLESTEROL 135.1 MG/DL (<100); NON-HDL-C 165.5 MG/DL; POTASSIUM SERUM 4.2 MMOL/L (3.5-5.1); SODIUM LEVEL 141 MMOL/L (136-145); THYROID STIMULATING HORMONE 1.838 uIU/ML (0.55-4.78); TOTAL 25(OH) VITAMIN D 33.4 NG/ML (20.0-100.0); TOTAL PROTEIN 6.6 G/DL (5.7-8.2); TRIGLYCERIDES LEVEL 152 MG/DL (<150); VITAMIN B12 LEVEL 620 PG/ML (211-911)
== END ==
LOC: M PLALAB 09:35
PROVIDERS: ATTEND Internal Medicine Hematology
DX: E11.9 Type 2 diabetes mellitus without complications (principal)

== ENCOUNTER → 2023-10-27 | Outpatient (CLI) | payer OTHER | LOC: M RAD 09:20 | PROVIDERS: ATTEND Nurse Practitioner Family | DX: N18.9 Chronic kidney disease, unspecified (principal); K80.80 Other cholelithiasis without obstruction; K76.0 Fatty (change of) liver, not elsewhere classified; N28.1 Cyst of kidney, acquired ==

== ENCOUNTER → 2023-11-13 | Outpatient (CLI) | payer OTHER ==
[2023-11-13 09:51] LABS: HEMATOCRIT 37.8 % (36.0-47.0); HEMOGLOBIN 12.4 g/dl (12.0-15.5); MEAN CORPUSCULAR HEMOGLOBIN 31.6 pg (27.0-33.0); MEAN CORPUSCULAR HGB CONC 32.8 g/dl (32.0-36.5); MEAN CORPUSCULAR VOLUME 96.2 fl (80.0-96.0); PLATELET COUNT, AUTOMATED 249 10^3/uL (150-450); RED BLOOD COUNT 3.93 10^6/uL (4.00-5.40); WHITE BLOOD COUNT 6.3 10^3/uL (4.0-10.0)
[2023-11-13 10:17] LABS: HEMOGLOBIN A1c 5.4 % (4.0-6.0)
[2023-11-13 10:20] LABS: CREATININE, URINE 154.7 MG/DL; MAU/CREAT RATIO 13.5 MCG/MG (0.0-30.0)
[2023-11-13 10:21] LABS: C REACTIVE PROTEIN QUANTITATIV < 0.40 MG/DL (<1.0)
[2023-11-13 10:23] LABS: ALBUMIN 3.2 G/DL (3.2-5.2); ALKALINE PHOSPHATASE 68 U/L (46-116); ALT/SGPT < 9 U/L (7.0-40); AST/SGOT < 8 U/L (<34); BILIRUBIN,TOTAL 0.2 MG/DL (0.3-1.2); BLOOD UREA NITROGEN 17 MG/DL (9-23); CALCIUM LEVEL 9.1 MG/DL (8.3-10.6); CARBON DIOXIDE LEVEL 29 MMOL/L (20-31); CHLORIDE LEVEL 108 MMOL/L (98-107); CHOLESTEROL LEVEL 183 MG/DL (<200); CREATININE FOR GFR 0.95 MG/DL (0.55-1.30); GLOMERULAR FILTRATION RATE > 60.0 (>45); GLUCOSE, FASTING 118 MG/DL (74-106); HDL CHOLESTEROL 43.5 MG/DL (>40); LDL CHOLESTEROL 119.3 MG/DL (<100); NON-HDL-C 139.5 MG/DL; POTASSIUM SERUM 4.3 MMOL/L (3.5-5.1); SODIUM LEVEL 141 MMOL/L (136-145); TOTAL PROTEIN 6.2 G/DL (5.7-8.2); TRIGLYCERIDES LEVEL 101 MG/DL (<150)
[2023-11-13 10:25] LABS: TOTAL 25(OH) VITAMIN D 27.3 NG/ML (20.0-100.0)
[2023-11-13 10:26] LABS: VITAMIN B12 LEVEL 366 PG/ML (211-911)
== END ==
LOC: M LAB 08:34
PROVIDERS: ATTEND Internal Medicine Hematology
DX: E11.9 Type 2 diabetes mellitus without complications (principal)

== ENCOUNTER → 2024-01-11 | Outpatient (CLI) | payer OTHER ==
[~2024-01-11] MED LIST changes: +AMIT25TA19 PO; +B-COCAP7 PO; +DEXI60CA2 PO; +DULO1CAP5 PO; +LEXA1TAB PO; +MAGN400T35 PO; +PREG75CA3 PO; +SEMA1PEN2 SC
== END ==
LOC: M PLALAB 10:53
PROVIDERS: ATTEND Internal Medicine Hematology
DX: Z01.818 Encounter for other preprocedural examination (principal)

== ENCOUNTER 2024-01-18 07:38 | Day surgery (SDC) | payer OTHER ==
[~2024-01-18] VITALS: Ht 160 cm; Wt 54.2 kg
[2024-01-18] MEDS ORDERED: LR 1,000 ML IV SCH (07:50)
[2024-01-18] MEDS ORDERED: ROCURONIUM BROMIDE 50MG/5ML VIAL As Ordered ONE (08:00)
[2024-01-18] MEDS ORDERED: LIDOCAINE 2% 100MG/5ML SDV (FOR ANES.) As Ordered ONE (08:00)
[2024-01-18] MEDS ORDERED: propofoL 200 MG/20 ML VIAL As Ordered ONE (08:00)
[2024-01-18] MEDS ORDERED: fentaNYL 100 MCG/2 ML INJECTION As Ordered ONE (08:00)
[2024-01-18] MEDS ORDERED: ACETAMINOPHEN 1000MG 100ML IV BAG As Ordered ONE (08:01)
[2024-01-18] MEDS: INDOCYANINE GREEN 25MG VIAL (IC-GREEN) IV ONE (08:40)
[2024-01-18] MEDS: ceFAZolin SOD 2 GM in IV 1 EA IV ONE (09:00)
[2024-01-18] MEDS: HEPARIN SOD (PORCINE) 5000UNITS/ML 1ML VIAL/SYRINGE SQ ONE (09:01)
[2024-01-18] MEDS ORDERED: ONDANSETRON 4MG 2ML VIAL As Ordered ONE (09:05)
[2024-01-18] MEDS ORDERED: SUGAMMADEX SODIUM 500 MG/5 ML VIAL (BRIDION) As Ordered ONE (09:05)
[2024-01-18] MEDS ORDERED: fentaNYL 100 MCG/2 ML INJECTION IV PRN (09:55)
[2024-01-18] MEDS: LR 1,000 ML IV SCH (10:09)
[2024-01-18] MEDS: HYDROMORPHONE HCL 0.5 MG/ 0.5 ML SYRINGE IV PRN (10:33)
[2024-01-18] MEDS: ONDANSETRON 4MG 2ML VIAL IV PRN (10:39)
[2024-01-18] MEDS: oxyCODONE 5MG TAB PO PRN (10:42)
[2024-01-18 11:45] VITALS: BP 131/71; TEMP 97.1; O2SAT 100
== END 2024-01-18 11:53 | disposition home or self-care (01) ==
LOC: M SDC 07:38
PROVIDERS: ATTEND Surgery
DX: K80.10 Calculus of gallbladder with chronic cholecystitis without obstruction (principal); K66.0 Peritoneal adhesions (postprocedural) (postinfection); K76.0 Fatty (change of) liver, not elsewhere classified; E11.22 Type 2 diabetes mellitus with diabetic chronic kidney disease; N18.30 Chronic kidney disease, stage 3 unspecified; E78.00 Pure hypercholesterolemia, unspecified; J44.9 Chronic obstructive pulmonary disease, unspecified; F17.210 Nicotine dependence, cigarettes, uncomplicated; Z79.899 Other long term (current) drug therapy; Z79.4 Long term (current) use of insulin; Z88.8 Allergy status to other drugs, medicaments and biological substances
CPT/HCPCS: 47562; 88304; J0131; J0665; J0690; J1170; J2405; J3010; Q9968; S2900

== ENCOUNTER → 2024-05-14 | Outpatient (CLI) | payer MEDICARE, OTHER, SELFPAY | LOC: M PLAIMG 16:31 | PROVIDERS: ATTEND Physician Assistant Medical | DX: J44.9 Chronic obstructive pulmonary disease, unspecified (principal); J40 Bronchitis, not specified as acute or chronic ==

== ENCOUNTER → 2024-09-10 | Outpatient (REF) | payer OTHER | LOC: M SFHCPLAZ 10:54 | PROVIDERS: ATTEND Family Medicine | DX: E11.9 Type 2 diabetes mellitus without complications (principal); E78.2 Mixed hyperlipidemia; K21.9 Gastro-esophageal reflux disease without esophagitis ==

== ENCOUNTER → 2024-09-13 | Outpatient (CLI) | payer MEDICARE ==
[2024-09-13 11:47] LABS: HEMATOCRIT 39.2 % (36.0-47.0); HEMOGLOBIN 12.6 g/dl (12.0-15.5); MEAN CORPUSCULAR HEMOGLOBIN 31.3 pg (27.0-33.0); MEAN CORPUSCULAR HGB CONC 32.1 g/dl (32.0-36.5); MEAN CORPUSCULAR VOLUME 97.3 fl (80.0-96.0); PLATELET COUNT, AUTOMATED 248 10^3/uL (150-450); RED BLOOD COUNT 4.03 10^6/uL (4.00-5.40); WHITE BLOOD COUNT 5.2 10^3/uL (4.0-10.0)
[2024-09-13 12:15] LABS: ALBUMIN 3.4 G/DL (3.2-5.2); ALKALINE PHOSPHATASE 74 U/L (35-104); ALT/SGPT 11 U/L (7.0-40); AST/SGOT 9 U/L (<34); BILIRUBIN,TOTAL 0.2 MG/DL (0.3-1.2); BLOOD UREA NITROGEN 14 MG/DL (9-23); CALCIUM LEVEL 9.5 MG/DL (8.3-10.6); CARBON DIOXIDE LEVEL 30 MMOL/L (20-31); CHLORIDE LEVEL 110 MMOL/L (98-107); CHOLESTEROL LEVEL 196 MG/DL (<200); CHOLESTEROL RISK RATIO 5.01 (<5); CREATININE FOR GFR 0.89 MG/DL (0.55-1.30); GLOMERULAR FILTRATION RATE > 60.0 (>45); GLUCOSE, FASTING 107 MG/DL (74-106); HDL CHOLESTEROL 39.1 MG/DL (>40); LDL CHOLESTEROL 110.7 MG/DL (<100); NON-HDL-C 156.9 MG/DL; POTASSIUM SERUM 4.3 MMOL/L (3.5-5.1); SODIUM LEVEL 141 MMOL/L (136-145); TOTAL PROTEIN 6.4 G/DL (5.7-8.2); TRIGLYCERIDES LEVEL 231 MG/DL (<150)
[2024-09-13 12:19] LABS: FREE T4 1.39 NG/DL (0.89-1.76); THYROID STIMULATING HORMONE 4.854 uIU/ML (0.55-4.78)
[2024-09-13 12:28] LABS: HEMOGLOBIN A1c 5.6 % (4.0-6.0)
== END ==
LOC: M PLALAB 08:42
DX: E11.9 Type 2 diabetes mellitus without complications (principal); K21.9 Gastro-esophageal reflux disease without esophagitis

== ENCOUNTER → 2025-03-25 | Outpatient (REF) | payer MEDICARE, MEDICAID | LOC: M SFHCPLAZ 08:29 | PROVIDERS: ATTEND Family Medicine | DX: Z53.9 Procedure and treatment not carried out, unspecified reason (principal) ==

== ENCOUNTER → 2025-03-28 | Outpatient (CLI) | payer MEDICARE, MEDICAID | LOC: M WHC 12:55 | PROVIDERS: ATTEND Nurse Practitioner Family | DX: N18.31 Chronic kidney disease, stage 3a (principal); N28.1 Cyst of kidney, acquired ==

== ENCOUNTER → 2025-04-01 | Outpatient (CLI) | payer MEDICARE, MEDICAID | LOC: M WHC 14:52 | DX: R92.8 Other abnormal and inconclusive findings on diagnostic imaging of breast (principal) ==

== ENCOUNTER → 2025-04-22 | Outpatient (CLI) | payer MEDICARE, MEDICAID | LOC: M WHC 09:18 | DX: R92.8 Other abnormal and inconclusive findings on diagnostic imaging of breast (principal); R92.323 Mammographic fibroglandular density, bilateral breasts; N60.11 Diffuse cystic mastopathy of right breast | CPT/HCPCS: 76642; 77066; G0279 ==

== ENCOUNTER → 2025-04-22 | Outpatient (CLI) | payer MEDICARE, MEDICAID | LOC: M WHC 19:28 | DX: R92.8 Other abnormal and inconclusive findings on diagnostic imaging of breast (principal) ==

== ENCOUNTER → 2025-06-10 | Outpatient (CLI) | payer MEDICARE, MEDICAID | LOC: M WHC 16:13 | DX: R92.8 Other abnormal and inconclusive findings on diagnostic imaging of breast (principal) ==

== ENCOUNTER → 2025-07-03 | Outpatient (CLI) | payer MEDICARE, MEDICAID | LOC: M WHC 10:05 | DX: R92.8 Other abnormal and inconclusive findings on diagnostic imaging of breast (principal) ==